=== PATIENT | female | born 1990 | race African-American/Black ===

== ENCOUNTER 2019-04-20 17:27 | Emergency (ER) | payer SELFPAY | END 2019-04-20 20:45 | disposition home or self-care (01) | LOC: JER 17:27 ==

== ENCOUNTER 2019-09-28 04:46 | Emergency (ER) | payer OTHER ==
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
[2019-09-28 04:54] VITALS: BMI 20.9
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
[2019-09-28 05:47] VITALS: BP 119/65; PULSE 77; TEMP 98.3
== END 2019-09-28 05:49 | disposition home or self-care (01) ==
LOC: JER 04:46
DX: Z04.1 Encounter for examination and observation following transport accident (principal); V43.52XA Car driver injured in collision with other type car in traffic accident, initial encounter; Y93.89 Activity, other specified; Y92.410 Unspecified street and highway as the place of occurrence of the external cause; Z91.018 Allergy to other foods
CPT/HCPCS: 99282-25